=== PATIENT | male | born 1995 | race African-American/Black ===

== ENCOUNTER 2016-02-24 03:02 | Emergency (ER) | payer OTHER ==
[~2016-02-24] VITALS: Ht 182.9 cm; Wt 112.5 kg
[~2016-02-24 03:02] MED LIST: ALBUAER3 IN; AZI250T PO; PRED-188 PO
[2016-02-24 03:12] VITALS: BP 153/69
[2016-02-24] MEDS ORDERED: ALBUTEROL SULF 2.5 MG/0.5ML(0.5%) NEB SOLN NEB ONE (04:30)
[2016-02-24] MEDS ORDERED: methylPREDNISolone SOD SUCC 125 MG/2 ML VL IM ONE (04:30)
[2016-02-24] MEDS ORDERED: IPRATROPIUM BROM 0.5 MG/2.5ML INH SOL NEB ONE (04:30)
== END 2016-02-24 04:49 | disposition home or self-care (01) ==
LOC: ER 03:05
DX: J45.901 Unspecified asthma with (acute) exacerbation (principal); F17.210 Nicotine dependence, cigarettes, uncomplicated; Z76.0 Encounter for issue of repeat prescription
CPT/HCPCS: 94640

== ENCOUNTER 2025-01-11 04:11 | Inpatient (IN) | payer MEDICAID, OTHER ==
[~2025-01-11] VITALS: Ht 182.9 cm; Wt 121.4 kg
[~2025-01-11 04:11] MED LIST changes: -AZI250T PO; +AZIT-185 PO
--- NOTE | 2025-01-11 04:39 | ED.PDOC ---
SOB-HPI HPI Comments 29 year old male with PMHx asthma presents to the ED with a chief complaint of shortness of breath onset 1 day. Patient states he has been experiencing shortness of breath with wheezing for the past day, used breathing treatments with no improvement of symptoms. Denies fever, chills, chest pain, headache, dizziness, nausea, vomiting, diarrhea, sore throat, congestion. No other symptoms or modifying factors present at this time. Chief Complaint: Shortness of Breath Time Seen by MD: 04:35 Primary Care Provider: Yandy Reviewed notes: Medications, Allergies Information Source: Patient Mode of Arrival: Ambulatory Severity: Moderate Timing: Days Duration: Since onset Context: At Rest PE Risk Factors: None History of: Asthma Prehospital treatment: Breathing Tx Modifying Factors: Nothing Associated Signs and Symptoms: Wheeze Past Medical History PAST MEDICAL HISTORY: Asthma Surgical History: Denies all surgeries Family History Family History: No family hx of DM Social History Smoker: Cigarettes Alcohol: Denies ETOH Use Drugs: Denies Drug Use Lives In: Home Constitutional: denies: chills, diaphoresis, fatigue, fever, malaise, sweats, weakness, others EENTM: denies: blurred vision, double vision, ear bleeding, ear discharge, ear drainage, ear pain, ear ringing, eye pain, eye redness, hearing loss, mouth pain, mouth swelling, nasal discharge, nose bleeding, nose congestion, nose pain, photophobia, tearing, throat pain, throat swelling, voice changes, others Respiratory: reports: shortness of breath, wheezing; denies: cough, hemoptysis, orthopnea, SOB at rest, SOB with excertion, stridor, others Cardiovascular: denies: chest pain, dizzy spells, diaphoresis, Dyspnea on exertion, edema, irregular heart beat, left arm pain, lightheadedness, palpitations, PND, syncope, others Gastrointestinal: denies: abdomen distended, abdominal pain, blood streaked bowels, constipated, diarrhea, dysphagia, difficulty swallowing, hematemesis, melena, nausea, poor appetite, poor fluid intake, rectal bleeding, rectal pain, vomiting, others Genitourinary: denies: burning, dysuria, flank pain, frequency, hematuria, incontinence, penile discharge, penile sore, pain, testicle pain, testicle swelling, urgency, others Neurological: denies: dizziness, fainting, headache, left sided numbness, left sided weakness, numbness, paresthesia, pre-existing deficit, right sided numbness, right sided weakness, seizure, speech problems, tingling, tremors, w eakness, others Musculoskeletal: denies: back pain, gout, joint pain, joint swelling, muscle pain, muscle stiffness, neck pain, others Integumetry: denies: bruises, change in color, change in hair/nails, dryness, laceration, lesions, lumps, rash, wounds, others Allergic/Immunocompromised: denies: Difficulty Healing, Frequent Infections, Hives, Itching, others Hematologic/Lymphatic: denies: anemia, blood clots, easy bleeding, easy bruising, swollen glands, others Endocrine: denies: excessive hunger, excessive sweating, excessive thirst, excessive urination, flushing, intolerance to cold, intolerance to heat, unexplained weight gain, unexplained weight loss, others Psychiatric: denies: anxiety, bipolar disorder, depression, hopeless, panic disorder, schizophrenia, sleepless, suicidal, others All Other Systems: Reviewed and Negative Physical Exam General Appearance: Moderate Distress, Normal HEENT: Normal ENT Inspection, Pharynx Normal, TMs Normal Neck: Full Range of Motion, Non-Tender, Normal, Normal Inspection Respiratory: Chest Non-Tender, No Accessory Muscle Use, No Respiratory Distress, Wheezing Cardiovascular: No Edema, No JVD, No Murmur, No Gallop, Normal Peripheral Pulses, Regular Rate/Rhythm Breast Exam: Deferred Gastrointestinal: No Organomegaly, Non Tender, No Pulsatile Mass, Normal Bowel Sounds, Soft Genitalia: Deferred Pelvic: Deferred Rectal: Deferred Extremities: No calf tenderness, Normal capillary refill, Normal inspection, Normal range of motion, Non-tender, No pedal edema Musculoskeletal : Apperance: Normal Neurologic: Alert, 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 Was a procedure done?: No Differential Dx Differential Diagnosis: Anxiety, Asthma, Bronchitis X-Ray, Labs, Meds, VS Vital Signs Date Time Temp Pulse Resp B/P (MAP) Pulse Ox O2 Delivery O2 Flow Rate FiO2 01/11/25 07:34 98.1 80 19 124/74 (91) 97 98.1 01/11/25 07:00 84 21 127/80 (96) 91 01/11/25 05:23 98 18 98 Nasal Cannula* 2 28 01/11/25 05:23 98 18 132/71 (91) 94 01/11/25 04:45 18 94 Nasal Cannula* 2 28 01/11/25 04:12 98.3 105 20 140/79 90 98.3 Lab Test 01/11/25 07:37 01/11/25 06:32 01/11/25 05:39 01/11/25 04:55 Range/Units Troponin I High Sensitivity Pending 5 </=54 ng/L POC Glucose 399 H 70-106 mg/dl Blood Gas Specimen Type Venous Blood Gas Sample Site Vbg - n/a Blood Gas Patient Temperature 37.0 Arterial Blood Date Drawn [id number] Galdino Test N/a Venous Blood pH 7.357 7.320-7.430 Venous Blood pCO2 at Patient Temp 42.3 38.0-54.0 mmHg Venous Blood pO2 at Patient Temp 53.5 H 23.0-48.0 mmHg Venous Blood HCO3 23.2 22.0-29.0 mmol/L Venous Bld O2 Saturation (Measured) 85.7 H 60.0-85.0 % Venous Blood Base Excess -2.3 L -2.0-3.0 mmol/L Venous Blood Total Hemoglobin 14.5 13.5-17.5 g/dL Venous Blood Oxyhemoglobin 83.5 H 0.0-79.0 % Venous Blood Carboxyhemoglobin 1.9 H 0.5-1.5 % Venous Blood Methemoglobin 0.7 0.0-1.5 % Venous Blood Deoxyhemoglobin 13.9 H 0.0-5.0 % Blood Gas Liter Flow 2.00 Blood Gas Modality Nasal cannula FiO2 % 28.0 Test 01/11/25 04:37 Range/Units White Blood Count 5.0 4.4-10.8 10^3/uL Red Blood Count 5.27 4.5-5.90 10^6/uL Hemoglobin 14.3 13.5-17.5 g/dL Hematocrit 43.5 41.0-53.0 % Mean Corpuscular Volume 82.5 80.0-100.0 fL Mean Corpuscular Hemoglobin 27.2 L 28.0-32.0 pg Mean Corpuscular Hemoglobin Concent 33.0 32.0-36.0 g/dL Red Cell Distribution Width 13.0 11.8-14.3 % Platelet Count 217 140-450 10^3/uL Mean Platelet Volume 8.9 6.9-10.8 fL Neutrophils (%) (Auto) 81.0 H 37.0-80.0 % Lymphocytes (%) (Auto) 8.0 L 10.0-50.0 % Monocytes (%) (Auto) 9.9 0.0-12.0 % Eosinophils (%) (Auto) 0.6 0.0-7.0 % Basophils (%) (Auto) 0.5 0.0-2.0 % Neutrophils # (Auto) 4.1 1.6-8.6 10 ^3/uL Lymphocytes # (Auto) 0.4 0.4-5.4 10 ^3/uL Monocytes # (Auto) 0.5 0-1.3 10 ^3/uL Eosinophils # (Auto) 0 0-0.8 10 ^3/uL Basophils # (Auto) 0 0-0.2 10 ^3/uL Nucleated Red Blood Cells 0.1 % Sodium Level 135 L 136-145 mmol/L Potassium Level 4.8 3.5-5.1 mmol/L Chloride Level 103 98-107 mmol/L Carbon Dioxide Level 23 20-31 mmol/L Anion Gap 9 5-15 Blood Urea Nitrogen 8 L 9-23 mg/dL Creatinine 1.01 0.700-1.30 mg/dL Glomerular Filtration Rate Calc 103 >90 mL/min BUN/Creatinine Ratio 7.9 L 10.0-20.0 Serum Glucose 489 *H 74-106 mg/dL Calcium Level 9.0 8.7-10.4 mg/dL Magnesium Level 1.6 1.6-2.6 mg/dL Total Bilirubin 0.4 0.2-1.0 mg/dL Aspartate Amino Transferase (AST) 15 13-40 U/L Alanine Aminotransferase (ALT) 17 7-40 U/L Alkaline Phosphatase 105 46-116 U/L Troponin I High Sensitivity 6 </=54 ng/L B-Type Natriuretic Peptide 22.74 0-100 pg/mL Total Protein 7.2 5.7-8.2 g/dL Albumin 4.2 3.2-4.8 g/dL Current Medications Medications (Trade) Dose Ordered Sig/Eliseo Route Start Time Stop Time Status Last Admin Albuterol (Ventolin Medneb) 5 mg ONCE ONCE NEB 01/11/25 04:45 01/11/25 04:46 DC 01/11/25 05:07 Ipratropium [place] (Atrovent Medneb) 0.5 mg ONCE ONCE NEB 01/11/25 04:45 01/11/25 04:46 DC 01/11/25 05:07 Prednisone 60 mg ONCE ONCE PO 01/11/25 04:45 01/11/25 05:51 DC 01/11/25 05:37 Sodium Chloride 1,000 ml @ 1,000 mls/hr Q1H ONCE IV 01/11/25 04:45 01/11/25 05:44 DC 01/11/25 04:45 Magnesium Sulfate/ Dextrose 100 ml @ 100 mls/hr ONCE ONCE IV 01/11/25 04:45 01/11/25 05:44 DC 01/11/25 05:37 Insulin Human Regular (InsuLIN R) 4 units ONCE ONCE SC 01/11/25 06:00 01/11/25 06:01 DC 01/11/25 06:43 Came in for shortness a breath. Blood sugar elevated pain Was given breathing treatment. Was given magnesium. Was given insulin. Continues to have problem with breathing. Possible pneumonitis. Was given steroid. Explained to the patient. Time of 1ST Reevaluation: 05:05 Reevaluation 1ST: Unchanged Patient Education/Counseling: Diagnosis, Treatment, Prognosis Family Education/Counseling: No Family Present SEPSIS Sepsis Screen Date sepsis recognized/suspect: Jan 11, 2025 Time Sepsis recognized/suspect: 414 Recent Procedure: No On Antibiotic Therapy: No Respiratory Rate >20: No Heart Rate >90: Yes Temp<36 C (96.8 F) or >38.3 C: No SBP <90 or MAP <65 mmHG: No New Acute Mental Status Change: No Is the patient on CPAP, BIPAP,: No Physician Orders Electrocardigram (01/11/25 04:31) Troponin-I Hs (01/11/25 07:31) Chest Xray 1 View (01/11/25 04:31) Venous Blood Gas (01/11/25 04:31) Vital Signs Date Time Temp Pulse Resp B/P (MAP) Pulse Ox O2 Delivery O2 Flow Rate FiO2 01/11/25 07:34 98.1 80 19 124/74 (91) 97 98.1 01/11/25 07:00 84 21 127/80 (96) 91 01/11/25 05:23 98 18 98 Nasal Cannula* 2 28 01/11/25 05:23 98 18 132/71 (91) 94 01/11/25 04:45 18 94 Nasal Cannula* 2 28 01/11/25 04:12 98.3 105 20 140/79 90 98.3 Laboratory Tests Test 01/11/25 04:37 White Blood Count 5.0 10^3/uL (4.4-10.8) Medications Medications Dose Ordered Sig/Eliseo Route Start Time Stop Time Status Last Admin Dose Admin Albuterol 5 mg ONCE ONCE NEB 01/11/25 04:45 01/11/25 04:46 DC 01/11/25 05:07 Insulin Human Regular 4 units ONCE ONCE SC 01/11/25 06:00 01/11/25 06:01 DC 01/11/25 06:43 Ipratropium [place] 0.5 mg ONCE ONCE NEB 01/11/25 04:45 01/11/25 04:46 DC 01/11/25 05:07 Magnesium Sulfate/ Dextrose 100 ml @ 100 mls/hr ONCE ONCE IV 01/11/25 04:45 01/11/25 05:44 DC 01/11/25 05:37 Prednisone 60 mg ONCE ONCE PO 01/11/25 04:45 01/11/25 05:51 DC 01/11/25 05:37 Sodium Chloride 1,000 ml @ 1,000 mls/hr Q1H ONCE IV 01/11/25 04:45 01/11/25 05:44 DC 01/11/25 04:45 Departure 1 Departure Time of Disposition: 08:04 Impression: Primary Impression: Uncontrolled type 2 diabetes mellitus with hyperglycemia Additional Impressions: asthma exacerbation Pneumonitis Disposition: ADMITTED INPATIENT Admit to: Med Surg Condition: Guarded e-Prescriptions Azithromycin (Azithromycin) 500 Mg Tab 1 TAB PO DAILY for 3 Days, #3 TAB Prov: MARIA DEL ROSARIO CAMPOS MD 01/11/25 Albuterol Sulfate (Albuterol Sulfate Hfa) 108 Mcg/Act Aer 108 MCG IN Q4HP PRN, #1 AER 3 Refills Prov: MARIA DEL ROSARIO CAMPOS MD 01/11/25 Albuterol Sulfate (Albuterol Sulfate) 0.083 % Neb 1 VIAL NEB Q4HPRN, #50 VIAL 3 Refills Prov: MARIA DEL ROSARIO CAMPOS MD 01/11/25 Sitagliptin Phosphate (Januvia) 100 Mg Tab 1 TAB PO DAILY for 90 Days, #90 TAB 3 Refills Prov: MARIA DEL ROSARIO CAMPOS MD 01/11/25 Metformin Hydrochloride (Metformin Hcl) 1,000 Mg Tab 1 TAB PO BID for 90 Days, #180 TAB 1 Refill Prov: MARIA DEL ROSARIO CAMPOS MD 01/11/25 Critical Care Note Critical Care Time?: Yes (90 min-critical care time only) Stability Stability form required: No Heart Score Heart Score: Heart Score Response (Comments) Value History N/A 0 EKG N/A 0 Age N/A 0 Risk Factors N/A 0 Troponin N/A 0 Total 0 I personally scribed for MARIA DEL ROSARIO CAMPOS MD ([email or web address]) on 01/11/25 at 04:39. Electronically submitted by Caitie Prieto ([email or web address]). MARIA DEL ROSARIO CAMPOS MD Jan 11, 2025 04:39 YUSUF MARCUM MD Jan 11, 2025 08:06
[2025-01-11] MEDS: SODIUM CHLORIDE 0.9% 1,000 ML IV ONE (04:45)
[2025-01-11] MEDS: IPRATROPIUM BROM 0.5 MG/2.5ML INH SOL NEB ONE (05:07)
[2025-01-11] MEDS: ALBUTEROL SULF 2.5 MG/0.5ML(0.5%) NEB SOLN NEB ONE (05:07)
--- NOTE | 2025-01-11 05:09 | DVH ---
CHEST RADIOGRAPH Indication: SOB Technique: XY CHEST XRAY 1 VIEW Comparison: None FINDINGS: The cardiac silhouette is unremarkable. The lungs demonstrate no pulmonary airspace consolidation. The pulmonary vasculature is mildly prominent. There is no pleural effusion. There is no pneumothorax. IMPRESSION: Mild pulmonary vasculature congestion.
[2025-01-11 05:11] LABS: Hematocrit 43.5 % (41.0-53.0); Hemoglobin 14.3 g/dL (13.5-17.5); Mean Corpuscular Hemoglobin 27.2 pg (28.0-32.0); Mean Corpuscular Volume 82.5 fL (80.0-100.0); Nucleated Red Blood Cells % 0.1 %
[2025-01-11 05:23] VITALS: PULSE 98; RESP 18; O2SAT 98
[2025-01-11 05:23] LABS: Alanine Aminotransferase 17 U/L (7-40); Albumin 4.2 g/dL (3.2-4.8); Alkaline Phosphatase 105 U/L (46-116); Anion Gap 9 (5-15); BUN/Creatinine Ratio 7.9 (10.0-20.0); Calcium 9.0 mg/dL (8.7-10.4); Carbon Dioxide 23 mmol/L (20-31); Chloride 103 mmol/L (98-107); Potassium 4.8 mmol/L (3.5-5.1); Total Protein 7.2 g/dL (5.7-8.2)
[2025-01-11 05:24] LABS: Bilirubin, Total 0.4 mg/dL (0.2-1.0)
[2025-01-11 05:29] LABS: Blood Urea Nitrogen 8 mg/dL (9-23); Magnesium 1.6 mg/dL (1.6-2.6); Sodium 135 mmol/L (136-145)
[2025-01-11 05:36] LABS: Glucose 489 mg/dL (74-106)
[2025-01-11] MEDS: MAGNESIUM SULFATE 1GM/100ML 100 ML IV ONE (05:37)
[2025-01-11] MEDS: predniSONE 20 MG TAB PO ONE (05:37)
[2025-01-11] MEDS ORDERED: AZIT500T66 PO (05:58)
[2025-01-11] MEDS ORDERED: SITA100T7 PO (05:58)
[2025-01-11] MEDS ORDERED: METF-372 PO (05:58)
[2025-01-11] MEDS ORDERED: ALBU0.084 NEB (05:58)
[2025-01-11] MEDS ORDERED: ALBU108A5 IN (05:58)
[2025-01-11] MEDS: InsuLIN REG 1unit/0.01ml Soln (100units/ml) SC ONE (06:43)
[2025-01-11 07:34] VITALS: PULSE 80; RESP 19; TEMP 98.1; O2SAT 97
[2025-01-11] MEDS ORDERED: ONDANSETRON HCL 4 MG/2 ML VIAL IV PRN (08:15)
[2025-01-11] MEDS ORDERED: ACETAMINOPHEN 325 MG TAB PO PRN (08:15)
[2025-01-11] MEDS ORDERED: DEXTROSE (50%) 50ML SYRG IV PRN (08:15)
--- NOTE | 2025-01-11 08:17 | DVHHP2 ---
History of Present Illness Reason for Visit: Shortness of breath History of Present Illness Jim Ya is a 29-year-old male with past medical history of asthma and diabetes who presents to the ED with shortness of breath x 2 weeks. Per patient was using his breathing treatments with no relief. 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 Patient's Grace at the bedside. Reports that he has been having shortness of breath for the last 2 weeks and does not use oxygen at home. Upon evaluation patient is on 2 L nasal cannula. Patient reports that there are no triggering or alleviating factors. Patient denies any recent trauma or injury, recent sick contacts, recent ingestion of spoiled food, chest pain, fever, chills, lightheadedness, weakness, dizziness, abdominal pain, nausea, vomiting, diarrhea, or urinary symptoms. Patient requesting to leave against medical advice and discussed risks and benefits, patient understands. Pulmonary: Asthma Endocrine: Diabetes Past Surgical History: None Family History: DM, Other (Dad with diabetes. Mom with bronchitis and .) Smoke: # pack years (Three packs per day) ALCOHOL: none Drugs: None Lives: with Family Domestic Violence: Neg Review of Systems Respiratory: Shortness of breath Allergies: Coded Allergies: NO KNOWN ALLERGIES (Unverified , 02/21/13) Exam Vital Signs Vital Signs Date Time Temp Pulse Resp B/P (MAP) Pulse Ox O2 Delivery O2 Flow Rate FiO2 01/11/25 07:34 80 19 97 Nasal Cannula* 2 28 01/11/25 07:34 98.1 124/74 (91) 98.1 General Appearance: Alert, Oriented X3, Cooperative, No acute distress HEENT: Atraumatic, PERRLA, EOMI Respiratory: Normal air movement Cardiovascular: Normal S1, Normal S2 Abdominal: Normal bowel sounds, Soft Extremities: No clubbing, No cyanosis, No edema, Normal pulses Skin: No significant lesion Neuro: Normal gait, Normal speech, Strength at 5/5 X4 ext, Normal tone, Sensation intact Psych/Mental Status: Mental status NL, Mood NL Labs/Xrays Labs Test 01/11/25 07:37 01/11/25 06:32 01/11/25 04:55 01/11/25 04:37 Range/Units POC Glucose 399 H 70-106 mg/dl Blood Gas Specimen Type Venous Blood Gas Sample Site Vbg - n/a Blood Gas Patient Temperature 37.0 Arterial Blood Date Drawn [id number] Galdino Test N/a Venous Blood pH 7.357 7.320-7.430 Venous Blood pCO2 at Patient Temp 42.3 38.0-54.0 mmHg Venous Blood pO2 at Patient Temp 53.5 H 23.0-48.0 mmHg Venous Blood HCO3 23.2 22.0-29.0 mmol/L Venous Bld O2 Saturation (Measured) 85.7 H 60.0-85.0 % Venous Blood Base Excess -2.3 L -2.0-3.0 mmol/L Venous Blood Total Hemoglobin 14.5 13.5-17.5 g/dL Venous Blood Oxyhemoglobin 83.5 H 0.0-79.0 % Venous Blood Carboxyhemoglobin 1.9 H 0.5-1.5 % Venous Blood Methemoglobin 0.7 0.0-1.5 % Venous Blood Deoxyhemoglobin 13.9 H 0.0-5.0 % Blood Gas Liter Flow 2.00 Blood Gas Modality Nasal cannula FiO2 % 28.0 White Blood Count 5.0 4.4-10.8 10^3/uL Red Blood Count 5.27 4.5-5.90 10^6/uL Hemoglobin 14.3 13.5-17.5 g/dL Hematocrit 43.5 41.0-53.0 % Mean Corpuscular Volume 82.5 80.0-100.0 fL Mean Corpuscular Hemoglobin 27.2 L 28.0-32.0 pg Mean Corpuscular Hemoglobin Concent 33.0 32.0-36.0 g/dL Red Cell Distribution Width 13.0 11.8-14.3 % Platelet Count 217 140-450 10^3/uL Mean Platelet Volume 8.9 6.9-10.8 fL Neutrophils (%) (Auto) 81.0 H 37.0-80.0 % Lymphocytes (%) (Auto) 8.0 L 10.0-50.0 % Monocytes (%) (Auto) 9.9 0.0-12.0 % Eosinophils (%) (Auto) 0.6 0.0-7.0 % Basophils (%) (Auto) 0.5 0.0-2.0 % Neutrophils # (Auto) 4.1 1.6-8.6 10 ^3/uL Lymphocytes # (Auto) 0.4 0.4-5.4 10 ^3/uL Monocytes # (Auto) 0.5 0-1.3 10 ^3/uL Eosinophils # (Auto) 0 0-0.8 10 ^3/uL Basophils # (Auto) 0 0-0.2 10 ^3/uL Nucleated Red Blood Cells 0.1 % Sodium Level 135 L 136-145 mmol/L Potassium Level 4.8 3.5-5.1 mmol/L Chloride Level 103 98-107 mmol/L Carbon Dioxide Level 23 20-31 mmol/L Anion Gap 9 5-15 Blood Urea Nitrogen 8 L 9-23 mg/dL Creatinine 1.01 0.700-1.30 mg/dL Glomerular Filtration Rate Calc 103 >90 mL/min BUN/Creatinine Ratio 7.9 L 10.0-20.0 Serum Glucose 489 *H 74-106 mg/dL Calcium Level 9.0 8.7-10.4 mg/dL Magnesium Level 1.6 1.6-2.6 mg/dL Total Bilirubin 0.4 0.2-1.0 mg/dL Aspartate Amino Transferase (AST) 15 13-40 U/L Alanine Aminotransferase (ALT) 17 7-40 U/L Alkaline Phosphatase 105 46-116 U/L B-Type Natriuretic Peptide 22.74 0-100 pg/mL Total Protein 7.2 5.7-8.2 g/dL Albumin 4.2 3.2-4.8 g/dL CHEST RADIOGRAPH Indication: SOB Technique: XY CHEST XRAY 1 VIEW Comparison: None FINDINGS: The cardiac silhouette is unremarkable. The lungs demonstrate no pulmonary airspace consolidation. The pulmonary vasculature is mildly prominent. There is no pleural effusion. There is no pneumothorax. IMPRESSION: Mild pulmonary vasculature congestion. SEPSIS Sepsis Screen Date sepsis recognized/suspect: Jan 11, 2025 Time Sepsis recognized/suspect: 0734 Recent Procedure: No On Antibiotic Therapy: No Respiratory Rate >20: No Heart Rate >90: No Temp<36 C (96.8 F) or >38.3 C: No SBP <90 or MAP <65 mmHG: No New Acute Mental Status Change: No Is the patient on CPAP, BIPAP,: No Physician Orders Electrocardigram (01/11/25 04:31) Troponin-I Hs (01/11/25 07:31) Chest Xray 1 View (01/11/25 04:31) Venous Blood Gas (01/11/25 04:31) Vital Signs Date Time Temp Pulse Resp B/P (MAP) Pulse Ox O2 Delivery O2 Flow Rate FiO2 01/11/25 07:34 80 19 97 Nasal Cannula* 2 28 01/11/25 07:34 98.1 80 19 124/74 (91) 97 98.1 01/11/25 07:00 84 21 127/80 (96) 91 01/11/25 05:23 98 18 98 Nasal Cannula* 2 28 01/11/25 05:23 98 18 132/71 (91) 94 01/11/25 04:45 18 94 Nasal Cannula* 2 28 01/11/25 04:12 98.3 105 20 140/79 90 98.3 Laboratory Tests Test 01/11/25 04:37 White Blood Count 5.0 10^3/uL (4.4-10.8) Medications Medications Dose Ordered Sig/Eliseo Route Start Time Stop Time Status Last Admin Dose Admin Albuterol 5 mg ONCE ONCE NEB 01/11/25 04:45 01/11/25 04:46 DC 01/11/25 05:07 5 MG Insulin Human Regular 4 units ONCE ONCE SC 01/11/25 06:00 01/11/25 06:01 DC 01/11/25 06:43 4 UNITS Ipratropium [place] 0.5 mg ONCE ONCE NEB 01/11/25 04:45 01/11/25 04:46 DC 01/11/25 05:07 0.5 MG Magnesium Sulfate/ Dextrose 100 ml @ 100 mls/hr ONCE ONCE IV 01/11/25 04:45 01/11/25 05:44 DC 01/11/25 05:37 100 MLS/HR Prednisone 60 mg ONCE ONCE PO 01/11/25 04:45 01/11/25 05:51 DC 01/11/25 05:37 60 MG Sodium Chloride 1,000 ml @ 1,000 mls/hr Q1H ONCE IV 01/11/25 04:45 01/11/25 05:44 DC 01/11/25 04:45 1,000 MLS/HR Assessment/Plan Assessment/Plan Assessment Acute on chronic asthma exacerbation Acute hypoxic respiratory failure on supplemental oxygen Tobacco use Obesity History of diabetes Plan Admit to med surge Antiemetics Pain management Hemoglobin A1c ISS and Accu-Cheks Supplemental oxygen IV steroids Duo nebs D-dimer Insulin given in ED Mag level NS 1 L given ED VBG Chest x-ray noted Troponin noted negative x2 BNP EKG UA UDS Diet Home medications reconciled DVT prophylaxis-Lovenox PUD prophylaxis-H2 blockers Discussed plan of care with patient and nurse Counseled patient on lifestyle modifications, diet, and exercise Counseled patient on cessation of tobacco use [id number] Behavior change smoking greater than 10 minutes about use of other options also gave option of nicotine patch [id number] Preventive counseling healthy eating habits, physical activity, and regular checkups Plan discussed with: Patient Date of Service: Jan 11, 2025 Billing Provider: ELAINE DEL ROSARIO Common Visit Codes: [id number] INP/OBS CARE (HIGH) Secondary Visit Codes: [id number] COUNSELING IND, [id number] CARE PLAN 30 MINUTES ELAINE DEL ROSARIO Jan 11, 2025 08:17
[2025-01-11 08:26] VITALS: BP 124/74; PULSE 84; RESP 14; O2SAT 95
[2025-01-11 08:50] VITALS: BP 125/70; PULSE 92; RESP 12; O2SAT 91
[2025-01-11] MEDS ORDERED: ENOXAPARIN SOD 40 MG/0.4 ML SYRINGE SC SCH (09:45)
[2025-01-11] MEDS ORDERED: FAMOTIDINE (10MG/ML) 2ML VL IV SCH (10:00)
[2025-01-11] MEDS ORDERED: IPRATROPIUM BROM 0.5 MG/2.5ML INH SOL NEB SCH (10:00)
[2025-01-11] MEDS ORDERED: ALBUTEROL SULF 2.5 MG/0.5ML(0.5%) NEB SOLN NEB SCH (10:00)
[2025-01-11] MEDS ORDERED: InsuLIN REG 1unit/0.01ml Soln (100units/ml) SC SCH (11:30)
[2025-01-11] MEDS ORDERED: ACCU-CHEK COMFORT CURVE STRIP VI SCH (11:30)
[2025-01-11] MEDS ORDERED: methylPREDNISolone SOD SUCC 40 MG/ML VL IV SCH (14:00)
== END 2025-01-11 08:55 | disposition left against medical advice (07) | DRG 133 ==
LOC: ER 04:11 → OVERFLOW 08:12
DX: J96.01 Acute respiratory failure with hypoxia (principal); J45.901 Unspecified asthma with (acute) exacerbation; E66.9 Obesity, unspecified; E11.65 Type 2 diabetes mellitus with hyperglycemia; Z53.29 Procedure and treatment not carried out because of patient's decision for other reasons; F17.210 Nicotine dependence, cigarettes, uncomplicated; J98.4 Other disorders of lung; Z83.3 Family history of diabetes mellitus; Z82.5 Family history of asthma and other chronic lower respiratory diseases; Z68.36 Body mass index [BMI] 36.0-36.9, adult
CPT/HCPCS: 36415; 36600; 71045; 80053; 82805; 82962; 83036; 83735; 83880; 84484; 85025; 85379; 94640; 96361; 96365; 99291; 99292; G0378; J1815